=== PATIENT | female | born 1955 | race Caucasian/White ===

== ENCOUNTER 2016-12-07 12:03 | Emergency (ER) | payer OTHER | END 2016-12-07 13:59 | disposition home or self-care (01) | LOC: ER 12:03 | DX: K14.0 Glossitis (principal); F32.9 Major depressive disorder, single episode, unspecified; J44.9 Chronic obstructive pulmonary disease, unspecified; K21.9 Gastro-esophageal reflux disease without esophagitis; E78.5 Hyperlipidemia, unspecified; F17.210 Nicotine dependence, cigarettes, uncomplicated; Z79.899 Other long term (current) drug therapy; Z88.4 Allergy status to anesthetic agent | CPT/HCPCS: 36415; 96361; 96374; J1200 ==